=== PATIENT | female | born 1995 | race Caucasian/White ===

== ENCOUNTER → 2017-10-17 | Outpatient (CLI) | payer OTHER | END | disposition home or self-care (01) | LOC: C.LABSPEC 11:55 | PROVIDERS: ATTEND Physician Assistant | DX: Z11.3 Encounter for screening for infections with a predominantly sexual mode of transmission (principal); Z11.8 Encounter for screening for other infectious and parasitic diseases ==

== ENCOUNTER → 2017-10-17 | Outpatient (CLI) | payer OTHER | END | disposition home or self-care (01) | LOC: C.PAPS 12:17 | PROVIDERS: ATTEND Physician Assistant | DX: Z12.4 Encounter for screening for malignant neoplasm of cervix (principal) ==

== ENCOUNTER 2023-03-06 07:44 | Inpatient (IN) ==
[2023-03-06] MEDS ORDERED: OXYTOCIN 30 UNITS/500 ML BAG IV PRN ×2 (08:02)
[2023-03-06] MEDS ORDERED: LIDOCAINE 1% LOCAL 20 ML VIAL INFIL PRN (08:02)
[2023-03-06] MEDS: LACTATED RINGER'S 1,000 ML IV PRN ×5 (08:28→22:43)
[2023-03-06 08:50] LABS: Hemoglobin 12.6 g/dl (12.0-16.0); Mean Corpuscular Hemoglobin 28.9 pg (25.0-34.0); Mean Corpuscular Hgb Conc 34.1 g/dL (32.0-36.0); Mean Corpuscular Volume 84.9 fL (80.0-100.0); Platelet Count 200 K/uL (130-400); RDW Coefficient of Variation 13.3 % (11.5-14.5); RDW Standard Deviation 41.4 fL (36.4-46.3); Red Blood Count 4.36 M/uL (4.20-5.40); White Blood Count 12.72 K/ul (4.8-10.8)
[2023-03-06] MEDS ORDERED: ePHEDrine sulfate 50 MG/ML AMP ONE (12:29)
[2023-03-06] MEDS ORDERED: SODIUM CHLORIDE 0.9% PF INJ 10 ML VIAL ONE (12:29)
[2023-03-06] MEDS ORDERED: fentaNYL citrate PF 100 MCG/2 ML VIAL ONE (12:29)
[2023-03-06] MEDS ORDERED: fentaNYL 2MCG/ML ROPIVACAINE 1.25MG/ML 100 ML BAG EPI ONE (12:30)
[2023-03-06] MEDS ORDERED: BUPIVACAINE 0.25% PF 30 ML VIAL ONE (12:30)
[2023-03-06] MEDS ORDERED: LIDOCAINE 2%/EPINEPHRINE 1:200,000 20 ML PF ONE (12:30)
--- NOTE | 2023-03-06 13:15 | Anesthesiology Consultation ---
Date of Service March 06, 2023 Assessment & Plan (1) Encounter for pre-operative examination: Chart Review Chart Review: Acceptable Risk for Labor Epidural History Height/Weight Height: 5 ft 7 in Weight: 86.183 kg Allergies Allergy/AdvReac Type Severity Reaction Status Date / Time bee venom protein (honey bee) Allergy Severe swelling Verified 03/03/23 11:12 BEE AdvReac Severe SWELLING Uncoded 03/03/23 11:12 Medications Home Medications Medication Instructions Recorded Confirmed Last Taken epinephrine 0.3 mg/0.3 mL 0.3 mg (0.3 mL) subcut Q15M 3 12/27/21 03/03/23 Unknown injection syringe doses #2 ea vits 75-iron 28 mg-folic pkg PO DAILY 07/13/22 03/03/23 03/04/23 19:00 acid 800 mcg-omega-3 oral combo pack (One A Day Women's DHA) Active Medications Generic Name Dose Route Start Last Admin Trade Name Freq PRN Reason Stop Dose Admin Oxytocin 30 units in 500 mls @ 13 mls/hr 03/06/23 08:02 03/06/23 11:45 Pitocin IV 03/08/23 08:01 0.78 units/hr .Q24H PRN 13 mls/hr Labor Induction/Augmentation Titration Protocol 0.78 UNITS/HR Lactated Ringer's 1,000 mls @ 125 mls/hr 03/06/23 08:02 03/06/23 12:45 Lr IV 03/08/23 08:01 999 mls/hr .Q8H PRN Administration L&D Protocol Protocol Past Medical History Medical History Bee sting Varicella vaccination Past Family History Family History Grandmother (Paternal) Ovarian cancer Cervical cancer Sister Seizures Mother Hypertension Diabetes Grandfather (Paternal) Prostate cancer Brother Environmental allergies Asthma Grandfather (Maternal) Heart disease Grandmother (Maternal) Heart disease Other No family history of adverse response to anesthesia No family history of bleeding disorder Denies family history of Myocardial infarction Breast cancer Colorectal cancer Past Surgical History Surgical History No history of previous surgery Social History Smoking Status: Never smoker Do You Dip or Chew Tobacco: No Hx Alcohol Use: No Hx Substance Use: No substance use type: does not use Physical Exam Vital Signs Last Vital Signs Temp 36.7 C 03/06/23 07:53 Pulse 62 03/06/23 13:09 Resp 16 03/06/23 07:53 BP 121/71 03/06/23 13:08 Pulse Ox 98 03/06/23 13:09 Testing Laboratory Results 03/06/23 08:18 03/06/23 09:48 POC Glucose 98
[2023-03-06] MEDS ORDERED: LIDOCAINE 2% MPF LOCAL 5 ML VIAL EPI PRN (13:36)
[2023-03-06] MEDS ORDERED: fentaNYL citrate PF 100 MCG/2 ML VIAL EPI STA (13:36)
[2023-03-06] MEDS ORDERED: LIDOCAINE 2%/EPINEPHRINE 1:200,000 20 ML PF EPI STA (13:36)
[2023-03-06] MEDS ORDERED: SODIUM CHLORIDE 0.9% PF INJ 10 ML VIAL EPI PRN (13:36)
[2023-03-06] MEDS ORDERED: BUPIVACAINE 0.25% PF 30 ML VIAL EPI STA (13:36)
[2023-03-06] MEDS ORDERED: BUPIVACAINE 0.25% PF 30 ML VIAL EPI PRN (13:36)
[2023-03-06] MEDS ORDERED: fentaNYL 2MCG/ML ROPIVACAINE 1.25MG/ML 100 ML BAG EPI PRN (13:36)
[2023-03-06] MEDS ORDERED: ROPIVACAINE 0.5% PF 5 MG/ML 20 ML VIAL EPI PRN (13:36)
[2023-03-06] MEDS ORDERED: fentaNYL citrate PF 100 MCG/2 ML VIAL EPI PRN (13:36)
[2023-03-06] MEDS ORDERED: ONDANSETRON INJ 2 MG/ML 2 ML VIAL IV PRN (13:36)
[2023-03-06] MEDS ORDERED: NALOXONE HCL 1 MG in SODIUM CHLORIDE 0.9% 1000ML 1,000 ML IV PRN (13:36)
[2023-03-06] MEDS ORDERED: ePHEDrine sulfate 50 MG/ML AMP IV PRN (13:36)
[2023-03-06] MEDS ORDERED: NALOXONE HCL 0.4 MG/1 ML VIAL/CARP IV PRN (13:36)
[2023-03-06] MEDS ORDERED: SODIUM CHLORIDE 0.9% PF INJ 10 ML VIAL EPI STA (13:36)
--- NOTE | 2023-03-06 14:23 | History & Physical Report ---
Date of Service March 06, 2023 Assessment & Plan (1) Supervision of normal first : Plan: 27 yo G1 at 40 3/7 wga admitted for IOL VSS Fetus cat 1 Labor - pit at 15, s/p arom of forebag GBS neg epidural in place Admission and Anticipated Discharge Date Admission Date: March 06, 2023 History of Present Illness Chief Complaint: IOL Primary Care Provider: Nito Davenport, 27 yo G1 at 40 3/7 wga presents for post dates IOL. 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 05/2021 neg cyto Allergies Allergy/AdvReac Type Severity Reaction Status Date / Time bee venom protein (honey bee) Allergy Severe swelling Verified 03/03/23 11:12 BEE AdvReac Severe SWELLING Uncoded 03/03/23 11:12 Home Medications Medication Instructions Recorded Confirmed Type epinephrine 0.3 mg/0.3 mL 0.3 mg (0.3 mL) subcut Q15M 3 12/27/21 03/03/23 Rx injection syringe doses #2 ea vits 75-iron 28 mg-folic pkg PO DAILY 07/13/22 03/03/23 History acid 800 mcg-omega-3 oral combo pack (One A Day Women's DHA) Patient History Medical History Bee sting Varicella vaccination Surgical History No history of previous surgery Family History Grandmother (Paternal) Ovarian cancer Cervical cancer Sister Seizures Mother Hypertension Diabetes Grandfather (Paternal) Prostate cancer Brother Environmental allergies Asthma Grandfather (Maternal) Heart disease Grandmother (Maternal) Heart disease Other No family history of adverse response to anesthesia No family history of bleeding disorder Denies family history of Myocardial infarction Breast cancer Colorectal cancer Social History (Updated 07/15/22 @ 15:10 by Gabbie Lam) Smoking Status: Never smoker Second Hand Exposure: Yes (Sometimes); Do You Dip or Chew Tobacco: No; Tobacco Cessation Education Requested by Patient: No Hx Alcohol Use: No Hx Substance Use: No Preferred Language: Algerian Communication Ability: Effective Visual Impairment: No Limitations Hearing Ability: Normal Fine Arts Teacher Required: No Beliefs That Will Affect Care: None marital status: marital status details: Scottie Melissan (30) [phone] Current Living Situation: Family Current Living Situation Comment: Lives with , 2 step sons, and 4 cats current occupational status: employed 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 Other Information That Helps Us Care for You: No Feels Safe at Home: Yes Safety Concerns: Feels Safe At This Time Childhood Exposure to Second-Hand Smoke: Yes Diet: regular Dental Care, Regularly: No Physical Activity Frequency: Daily Seatbelt Use: always Sunscreen Use: Yes Assistive Devices: None Physical Exam Genitourinary: Manual OB Exam: + cervical dilation 5 cm, + cervical effacement 50%, + station -2 and + amniotic fluid (SROM, arom forebag) OB Exam Monitor Tracing: + external FHT monitor used, + external uterine monitor used (q3) and + category I (120/mod/+accel/-decel) Results & Data Vital Signs (Past 12 Hours) Vital Signs Temp Pulse Resp BP Pulse Ox 03/06/23 07:53 98.1 F 83 16 113/70 03/06/23 14:15 70 95/63 L 03/06/23 14:14 54 L 98 03/06/23 14:09 74 90 03/06/23 14:08 66 90 03/06/23 14:04 72 99 03/06/23 13:59 74 98 03/06/23 13:58 73 105/67 03/06/23 13:56 63 101/66 03/06/23 13:55 71 92 03/06/23 13:54 71 105/65 94 03/06/23 13:52 62 106/64 03/06/23 13:49 75 98 03/06/23 13:50 66 108/67 03/06/23 13:48 71 109/63 03/06/23 13:46 64 105/61 03/06/23 13:44 97 03/06/23 13:44 70 03/06/23 13:44 68 111/65 03/06/23 13:42 69 91/54 L 03/06/23 13:39 98 03/06/23 13:39 76 03/06/23 13:40 69 99/64 L 03/06/23 13:39 69 103/61 03/06/23 13:37 67 103/63 03/06/23 13:36 64 105/65 03/06/23 13:34 60 108/69 97 03/06/23 13:31 58 L 91 03/06/23 13:32 59 L 117/72 03/06/23 13:29 67 98 03/06/23 13:27 70 122/78 03/06/23 13:24 59 L 99 03/06/23 13:23 73 113/74 03/06/23 13:21 61 120/77 03/06/23 13:19 64 100 03/06/23 13:16 59 L 120/76 03/06/23 13:14 80 92 03/06/23 13:09 98 03/06/23 13:09 62 03/06/23 13:09 59 L 91 03/06/23 13:08 60 121/71 03/06/23 13:04 60 100 03/06/23 12:59 69 100 03/06/23 12:57 56 L 121/77 03/06/23 12:55 56 L 117/79 03/06/23 12:54 99 03/06/23 12:54 57 L 03/06/23 12:54 71 92 03/06/23 12:49 60 98 03/06/23 12:44 57 L 99 03/06/23 12:39 58 L 98 03/06/23 12:38 57 L 120/80 03/06/23 11:57 69 135/82 03/06/23 11:18 59 L 119/73 03/06/23 10:50 58 L 123/81 03/06/23 09:33 62 113/64 03/06/23 09:07 76 112/74 03/06/23 07:52 83 113/70 Laboratory Results OB Labs: Blood Type A Positive 07/22/22 Antibody Screen NEGATIVE 07/22/22 Hemoglobin 11.4 g/dl (12.0-16.0) L 12/08/22 Hematocrit 34.6 % (37.0-47.0) L 12/08/22 Mean Corpuscular Volume 87.8 fL (80.0-100.0) 07/22/22 Platelet Count 259 K/uL (130-400) 07/22/22 Rubella IgG Antibody Immune (Immune) 07/22/22 Rapid Plasma Reagin Nonreactive (Nonreactive) 07/22/22 Hepatitis B Surface Antigen. NON-REACTIVE (NON-REACTIVE) 07/22/22 Hepatitis C Antibody (EIA) NON-REACTIVE (NON-REACTIVE) 07/22/22 HIV (1&2) Ag and Ab Confirmation NON-REACTIVE (NON-REACTIVE) 07/22/22 Glucose 1 Hour 50 gm LoadE 132 mg/dl (70-130) H 12/08/22 OB Optional Labs: Chlamydia trachomatis RNA Not Detected (NotDetected) 07/22/22 Neisseria gonorrhoeae RNA Not Detected (NotDetected) 07/22/22 Thyroid Stimulating Hormone (TSH) 0.866 uIu/ml (0.300-4.500) 12/31/21 Labs Reviewed: Declines cf/sma/cfdna--mln quad neg - sln gbs neg--akh Diagnostic Findings anterior placenta Coding Level of Care Code None Diagnoses Supervision of normal first Z34.00
--- NOTE | 2023-03-06 20:37 | Labor Progress Brief Note ---
Date of Service March 06, 2023 Subjective Comfortable w/ epidural. Pit was paused earlier by nursing due to early vs variable Assessment & Plan (1) Supervision of normal first : Plan: 27 yo G1 at 40 3/7 wga admitted for IOL VSS Fetus cat 1 Labor - pit at 5, FSE/IUPC placed for more accurate monitoring as baby is difficult to trace GBS neg epidural in place Admission and Anticipated Discharge Date Admission Date: March 06, 2023 Physical Exam Genitourinary: Manual OB Exam: + cervical dilation 5 cm, + cervical effacement 70% and + station -1 OB Exam Monitor Tracing: + scalp electrode used, + intra-uterine pressure catheter used and + category II Results & Data Vital Signs (Past 12 Hours) Vital Signs Temp Pulse Resp BP Pulse Ox O2 Del Method 03/06/23 19:15 97.7 F 16 Room Air 03/06/23 20:33 78 92 03/06/23 20:31 56 L 112/74 03/06/23 20:29 55 L 99 03/06/23 20:24 60 100 03/06/23 20:19 56 L 100 03/06/23 20:14 55 L 100 03/06/23 20:15 55 L 119/72 03/06/23 20:09 57 L 100 03/06/23 20:04 55 L 100 03/06/23 20:01 55 L 122/71 03/06/23 19:59 55 L 100 03/06/23 19:54 54 L 100 03/06/23 19:49 56 L 97 03/06/23 19:44 55 L 100 03/06/23 19:45 55 L 128/83 03/06/23 19:39 55 L 100 03/06/23 19:34 55 L 100 03/06/23 19:32 54 L 130/85 03/06/23 19:29 56 L 100 03/06/23 19:24 55 L 98 03/06/23 19:19 55 L 100 03/06/23 19:18 60 92 03/06/23 19:17 54 L 121/79 03/06/23 19:14 54 L 100 03/06/23 19:12 55 L 91 03/06/23 19:09 54 L 100 03/06/23 19:04 53 L 100 03/06/23 19:02 60 107/76 03/06/23 18:59 53 L 100 03/06/23 18:58 66 91 03/06/23 18:54 59 L 97 03/06/23 18:53 60 90 03/06/23 18:49 54 L 100 03/06/23 18:46 53 L 116/77 03/06/23 18:44 60 98 03/06/23 18:39 58 L 98 03/06/23 18:34 53 L 100 03/06/23 18:30 65 90 03/06/23 18:29 59 L 100 03/06/23 18:24 54 L 99 03/06/23 18:19 53 L 100 03/06/23 18:16 72 111/81 94 03/06/23 18:14 53 L 98 03/06/23 18:09 53 L 100 03/06/23 18:05 16 03/06/23 18:05 97.7 F 16 03/06/23 18:04 56 L 100 03/06/23 18:02 64 91/55 L 03/06/23 18:00 58 L 90 03/06/23 17:59 54 L 99 03/06/23 17:54 63 99 03/06/23 17:50 67 87 L 03/06/23 17:49 66 94 03/06/23 17:45 56 L 101/66 03/06/23 17:44 57 L 99 03/06/23 17:39 58 L 96 03/06/23 17:38 66 91 03/06/23 17:34 65 100 03/06/23 17:33 61 95/55 L 03/06/23 17:32 55 L 87/52 L 03/06/23 17:30 63 89/52 L 03/06/23 17:29 67 99 03/06/23 17:24 53 L 99 03/06/23 17:19 59 L 98 03/06/23 17:17 53 L 95/56 L 03/06/23 17:14 59 L 97 03/06/23 17:05 18 03/06/23 17:05 97.7 F 18 03/06/23 17:09 56 L 99 03/06/23 17:04 62 100 03/06/23 17:00 49 L 93/54 L 03/06/23 16:59 62 99 03/06/23 16:54 66 98 03/06/23 16:49 60 100 03/06/23 16:45 57 L 98/61 L 03/06/23 16:44 65 98 03/06/23 16:39 54 L 99 03/06/23 16:34 59 L 97 03/06/23 16:29 100 03/06/23 16:29 60 03/06/23 16:30 60 101/66 03/06/23 16:29 61 91 03/06/23 16:24 64 96 03/06/23 16:19 98 03/06/23 16:19 60 03/06/23 16:19 70 92 03/06/23 16:15 55 L 100/61 03/06/23 16:14 59 L 98 03/06/23 16:13 56 L 92 03/06/23 16:09 57 L 98 03/06/23 15:16 18 03/06/23 15:16 98.1 F 18 03/06/23 16:04 59 L 98 03/06/23 15:59 54 L 100 03/06/23 16:00 97.9 F 59 L 16 101/62 03/06/23 15:54 54 L 100 03/06/23 15:49 56 L 100 03/06/23 15:47 49 L 100/60 03/06/23 15:44 65 100 03/06/23 15:39 51 L 99 03/06/23 15:34 56 L 97 03/06/23 15:30 62 101/65 03/06/23 15:29 58 L 97 03/06/23 15:24 62 97 03/06/23 15:19 56 L 97 03/06/23 15:18 61 94 03/06/23 15:17 58 L 90/51 L 03/06/23 15:14 63 97 03/06/23 15:09 63 99 03/06/23 15:04 55 L 95 03/06/23 15:02 57 L 109/67 03/06/23 13:35 18 03/06/23 13:35 97.9 F 18 03/06/23 14:59 54 L 99 03/06/23 14:55 16 03/06/23 14:55 98.1 F 16 03/06/23 14:54 56 L 99 03/06/23 14:49 69 97 03/06/23 14:46 69 101/66 03/06/23 14:44 63 98 03/06/23 14:39 83 98 03/06/23 14:34 74 98 03/06/23 14:31 62 114/67 03/06/23 14:29 65 98 03/06/23 14:24 69 98 03/06/23 14:19 56 L 97 03/06/23 14:15 70 95/63 L 03/06/23 14:14 54 L 98 03/06/23 14:09 74 90 03/06/23 14:08 66 90 03/06/23 14:04 72 99 03/06/23 13:59 74 98 03/06/23 13:58 73 105/67 03/06/23 13:56 63 101/66 03/06/23 13:55 71 92 03/06/23 13:54 71 105/65 94 03/06/23 13:52 62 106/64 03/06/23 13:49 75 98 03/06/23 13:50 66 108/67 03/06/23 13:48 71 109/63 03/06/23 13:46 64 105/61 03/06/23 13:44 97 03/06/23 13:44 70 03/06/23 13:44 68 111/65 03/06/23 13:42 69 91/54 L 03/06/23 13:39 98 03/06/23 13:39 76 03/06/23 13:40 69 99/64 L 03/06/23 13:39 69 103/61 03/06/23 13:37 67 103/63 03/06/23 13:36 64 105/65 03/06/23 13:34 60 108/69 97 03/06/23 13:31 58 L 91 03/06/23 13:32 59 L 117/72 03/06/23 13:29 67 98 03/06/23 13:27 70 122/78 03/06/23 13:24 59 L 99 03/06/23 13:23 73 113/74 03/06/23 13:21 61 120/77 03/06/23 13:19 64 100 03/06/23 13:16 59 L 120/76 03/06/23 13:14 80 92 03/06/23 13:09 98 03/06/23 13:09 62 03/06/23 13:09 59 L 91 03/06/23 13:08 60 121/71 03/06/23 13:04 60 100 03/06/23 12:59 69 100 03/06/23 12:57 56 L 121/77 03/06/23 12:55 56 L 117/79 03/06/23 12:54 99 03/06/23 12:54 57 L 03/06/23 12:54 71 92 03/06/23 12:49 60 98 03/06/23 12:44 57 L 99 03/06/23 12:39 58 L 98 03/06/23 12:38 57 L 120/80 03/06/23 11:57 69 135/82 03/06/23 11:18 59 L 119/73 03/06/23 10:50 58 L 123/81 03/06/23 09:33 62 113/64 03/06/23 09:07 76 112/74 Coding Level of Care Code None Diagnoses Supervision of normal first Z34.00
--- NOTE | 2023-03-07 01:15 | Delivery Summary ---
Vaginal Delivery Summary Date of Service March 07, 2023 Vaginal Delivery Summary [facility] PREOPERATIVE DIAGNOSIS: 1. Single intrauterine at 40 4/7 wga 2. Post-dates IOL POSTOPERATIVE DIAGNOSIS: 1. Single intrauterine at 40 4/7 wga 2. Post-dates IOL 3. Delivered PROCEDURE: 1. Normal spontaneous vaginal delivery. SURGEON: Araceli Holguin MD ANESTHESIA: Epidural. ESTIMATED BLOOD LOSS: 300 mL FLUIDS: Continuous LR. URINE OUTPUT: None. COMPLICATIONS: None. CONDITION: Stable. INDICATIONS: 27 yo G1 at 40 4/7 wga presented one day ago for post-dates IOL. Chou bulb had been placed the evening prior and she was 4cm on arrival. She was started on pitocin and received an epidural for pain control. She underwent arom and pitocin was paused due to decels. It was able to be restarted, IUPC and FSE were placed for more accurate monitoring. She progressed to complete and desired to push. FINDINGS: A viable female , weight pending with Apgars of 8 and 9 at 1 and 5 minutes respectively. SPECIMEN: Cord blood, placenta OPERATIVE REPORT: The patient progressed to 10 cm, 100% effaced and +2 station, pushed over intact perineum with anesthesia to deliver a viable female , weight and Apgars as above. Head of delivered in LUIS position. No nuchal cord was present. Body and shoulders were delivered without difficulty. was delivered to maternal abdomen and nursing staff. Delayed cord clamping was performed for 60 seconds. Cord was clamped and cut. Cord blood was obtained. Placenta delivered spontaneously intact with 3-vessel cord. IV oxytocin and fundal massage were given for excellent hemostasis. Vagina, cervix, perineum, and placenta were inspected. A left labial laceration was noted and repaired using 4-0 vicryl. Hemostatic vaginal abrasions were noted and did not need to be repaired. Sponge and needle counts correct x2. No sponges were left behind. Mother and stable in immediate period. [facility] Vaginal Delivery Charge Vaginal Delivery Codes: 85741 global code for the antepartum, delivery, and post- Delivery Type Details: [facility]
[2023-03-07] MEDS ORDERED: OXYTOCIN 30 UNITS/500 ML BAG IV PRN (01:31)
[2023-03-07] MEDS ORDERED: ACETAMINOPHEN 325 MG TAB PO PRN (01:31)
[2023-03-07] MEDS ORDERED: HYDROCORTISONE ACETATE 25 MG SUPP PR PRN (01:31)
[2023-03-07] MEDS ORDERED: bisacodyL 10 MG SUPP PR PRN (01:31)
[2023-03-07] MEDS ORDERED: DIPHTHERIA/TETANUS/PERTUSSIS Vaccine (Tdap, Age 7+yrs) 0.5mL SYR/VL IM ONE (01:31)
[2023-03-07] MEDS: BENZOCAINE 20% AER SPR 82.5 GM CAN EXT PRN (03:12)
[2023-03-07] MEDS: IBUPROFEN 600 MG TAB PO PRN ×4 (07:31→22:24)
[2023-03-07] MEDS: DOCUSATE SODIUM 100 MG CAP PO SCH ×2 (07:31→20:24)
[2023-03-07] MEDS: FERROUS SULFATE 325 MG TAB PO SCH (07:31)
[2023-03-07] MEDS: PRENATAL VITAMIN 1 TAB PO SCH (07:31)
--- NOTE | 2023-03-07 09:02 | Anesthesia Procedure Note ---
Date of Service March 07, 2023 Anesthesia Post Epidural Note Vital Signs Vital Signs: Temp Pulse Resp BP Pulse Ox O2 Del Method 36.4 C L 53 L 18 114/74 96 Room Air 03/07/23 07:35 03/07/23 07:35 03/07/23 07:35 03/07/23 07:35 03/07/23 04:17 03/07/23 07:35 Pain Intensity Episiotomy/Laceration: Pain Intensity: 4 Notes Mental Status: alert / awake / arousable Nausea / Vomiting: adequately controlled Pain: adequately controlled Airway Patency, RR, SpO2: stable & adequate BP & HR: stable & adequate Hydration State: stable & adequate Neuraxial Anesthesia: was administered and sensory block is resolving Anesthetic Complications: no major complications apparent Epidural: Removed without complications and With tip intact
--- NOTE | 2023-03-08 07:15 | Obstetrical Progress Note ---
Date of Service March 08, 2023 Assessment & Plan (1) Encounter for care and examination after delivery: Day 1 status post vaginal delivery. Patient doing well. Patient requesting discharge and patient is determined to be stable for discharge. Subjective Ambulation: ambulating normally Voiding: no voiding problems Passing Gas:: Yes Diet Tolerance:: regular diet Lochia:: Moderate Feeding Type:: breast feeding Physical Exam Constitutional WD/WN, vitals as above Respiratory normal respiratory effort; no respiratory distress and no labored breathing Gastrointestinal (Abdomen) Inspection/Auscultation: abdomen normal to inspection; abdomen not distended Percussion/Palpation: abdomen soft; abdomen nontender, no guarding and abdomen not rigid Genitourinary OB Exam Abdomen: + fundal height Fundus: + firm and + relation to umbilicus (Below); not tender or not boggy Results & Data Vital Signs (Past 12 Hours) Vital Signs Temp Pulse Resp BP Pulse Ox O2 Del Method 03/07/23 23:03 36.6 C 64 14 119/77 99 Room Air 03/07/23 20:20 36.7 C 67 16 102/66 98 Room Air
[2023-03-08] MEDS: FERROUS SULFATE 325 MG TAB PO SCH (08:11)
[2023-03-08] MEDS: IBUPROFEN 600 MG TAB PO PRN (08:11)
[2023-03-08] MEDS: DOCUSATE SODIUM 100 MG CAP PO SCH (08:11)
[2023-03-08] MEDS: PRENATAL VITAMIN 1 TAB PO SCH (08:11)
[2023-03-08] MEDS: BENZOCAINE 20% AER SPR 82.5 GM CAN EXT PRN (08:25)
[2023-03-08] MEDS ORDERED: bisacodyL 5 MG TABEC PO SCH (20:00)
== END 2023-03-08 13:13 | disposition home or self-care (01) | DRG 807 ==
LOC: 4S1 07:44 → 4E2 03-07 04:04